=== PATIENT | female | born 1960 | race Caucasian/White ===

== ENCOUNTER 2016-07-26 10:18 | Emergency (ER) | payer OTHER | END 2016-07-26 12:30 | disposition home or self-care (01) | LOC: FER 10:18 | DX: S46.911A Strain of unspecified muscle, fascia and tendon at shoulder and upper arm level, right arm, initial encounter (principal); W19.XXXA Unspecified fall, initial encounter; Y92.009 Unspecified place in unspecified non-institutional (private) residence as the place of occurrence of the external cause | CPT/HCPCS: 73000; 73030; 73060; J1885 ==

== ENCOUNTER 2020-04-27 12:47 | Emergency (ER) | payer OTHER ==
[~2020-04-27 12:47] MED LIST: ALDACTONE100 MG PO; ASPIRIN325 MG PO; CORGARD40 MG PO; METFORMIN HCL500 MG PO; MOBIC7.5 MG PO; PERCOCET 5-3251 EACH PO
[2020-04-27] MEDS ORDERED: NORCO 5-325 TA1 EACH PO (17:19)
== END 2020-04-27 18:13 | disposition home or self-care (01) ==
LOC: FER 12:47
DX: S42.252A Displaced fracture of greater tuberosity of left humerus, initial encounter for closed fracture (principal); I10 Essential (primary) hypertension; E11.9 Type 2 diabetes mellitus without complications; Z88.2 Allergy status to sulfonamides; Z79.84 Long term (current) use of oral hypoglycemic drugs; Z79.899 Other long term (current) drug therapy; W10.9XXA Fall (on) (from) unspecified stairs and steps, initial encounter; Y92.009 Unspecified place in unspecified non-institutional (private) residence as the place of occurrence of the external cause
CPT/HCPCS: 73020; 73030; 73060; 73630; 96374; 96375; J1170; J3360